=== PATIENT | female | born 1990 | race Hispanic/Latino ===

== ENCOUNTER 2021-06-16 16:39 | Emergency (ER) | payer SELFPAY ==
[~2021-06-16] VITALS: Ht 165.1 cm; Wt 45.4 kg
[2021-06-16] MEDS ORDERED: SODIUM CHLORIDE 0.9% 1000ML 1,000 ML IV STA (17:10)
[2021-06-16] MEDS ORDERED: SODIUM CHLORIDE 0.9% 50ML 50 ML ONE (17:22)
[2021-06-16] MEDS ORDERED: IOPAMIDOL 370 MG/ML 200 ML INFUS..BTL INJ ONE (17:22)
[2021-06-16] MEDS ORDERED: SODIUM CHLORIDE 0.9% 1000ML 1,000 ML ONE (17:41)
[2021-06-16] MEDS ORDERED: ACETAMINOPHEN500 MG PO (18:36)
[2021-06-16] MEDS ORDERED: FLEET ENEMA133 ML PR (18:36)
[2021-06-16] MEDS ORDERED: MAGNESIUM CITR296 ML PO (18:36)
== END 2021-06-16 19:03 | disposition home or self-care (01) ==
LOC: FSED 16:44
DX: R10.31 Right lower quadrant pain (principal); R11.0 Nausea; K59.00 Constipation, unspecified
CPT/HCPCS: 74177; 76856; 80053; 81003; 81025; 99284; J7030; Q9967

== ENCOUNTER 2021-12-06 18:17 | Emergency (ER) | payer SELFPAY ==
[~2021-12-06] VITALS: Ht 165.1 cm; Wt 47.7 kg
[~2021-12-06 18:17] MED LIST: ACETAMINOPHEN500 MG PO; FLEET ENEMA133 ML PR; MAGNESIUM CITR296 ML PO
[2021-12-06] MEDS ORDERED: CYCLOBENZAPRINE5 MG PO (18:41)
[2021-12-06] MEDS ORDERED: ONDANSETRON ODT4 MG PO (18:41)
[2021-12-06] MEDS ORDERED: IBUPROFEN600 MG PO (18:41)
[2021-12-06] MEDS ORDERED: CYCLOBENZAPRINE HCL 10 MG TAB PO ONE (18:45)
[2021-12-06] MEDS ORDERED: ONDANSETRON HCL 4 MG ORAL DISINTEGRATING TAB PO ONE (18:45)
[2021-12-06] MEDS ORDERED: KETOROLAC TROMETHAMINE 60 MG/2 ML VIAL IM ONE (18:45)
[2021-12-06] MEDS ORDERED: KETOROLAC TROMETHAMINE 30 MG/ML VIAL ONE (18:52)
== END 2021-12-06 19:00 | disposition home or self-care (01) ==
LOC: FSED 18:33
DX: M54.42 Lumbago with sciatica, left side (principal); M54.41 Lumbago with sciatica, right side; R11.0 Nausea
CPT/HCPCS: 81003; 81025; 99283; J1885; Q0162

== ENCOUNTER 2024-12-02 23:07 | Emergency (ER) | payer OTHER ==
[~2024-12-02] VITALS: Ht 165.1 cm; Wt 44.9 kg
[~2024-12-02 23:07] MED LIST changes: +CYCLOBENZAPRINE5 MG PO; +FIORICET 50-301 EACH PO; +IBUPROFEN200 MG PO; +IBUPROFEN600 MG PO; +KETOROLAC TROME10 MG PO; +LEVOFLOXACIN250 MG PO; +ONDANSETRON ODT4 MG PO; +THERAFLU SEVER1 EAC4 PO
[2024-12-02 23:15] VITALS: PULSE 87; RESP 20; TEMP 98.8
[2024-12-02] MEDS ORDERED: ONDANSETRON ODT4 MG PO (23:50)
[2024-12-03 00:02] VITALS: BP 106/66; PULSE 87; RESP 20; TEMP 98.8; O2SAT 99
== END 2024-12-02 23:52 | disposition home or self-care (01) ==
LOC: FSED 23:43
DX: R05.9 Cough, unspecified (principal); J06.9 Acute upper respiratory infection, unspecified; B34.9 Viral infection, unspecified; R51.9 Headache, unspecified; R11.0 Nausea; M79.18 Myalgia, other site; Z11.52 Encounter for screening for COVID-19
CPT/HCPCS: 0223U; 83518 ×2; 87400; 99283

== ENCOUNTER 2025-05-18 21:09 | Emergency (ER) | payer OTHER ==
[~2025-05-18] VITALS: Ht 165.1 cm; Wt 44.5 kg
[2025-05-18 23:03] VITALS: PULSE 68; RESP 14; TEMP 98.7
[2025-05-18] MEDS: KETOROLAC TROMETHAMINE 60 MG/2 ML VIAL IM ONE (23:03)
[2025-05-18] MEDS: DEXAMETHASONE SOD PHOS INJ 4 MG/ML SDV IM ONE (23:03)
[2025-05-19 00:36] VITALS: BP 94/58; PULSE 68; RESP 14; TEMP 98.7; O2SAT 99
== END 2025-05-18 23:05 | disposition home or self-care (01) ==
LOC: FSED 21:35
DX: J06.9 Acute upper respiratory infection, unspecified (principal)
CPT/HCPCS: 0223U; 83518 ×2; 87400; 96372; 99283; J1100; J1885